=== PATIENT | female | born 1995 | race Caucasian/White ===

== ENCOUNTER 2016-07-23 09:37 | Emergency (ER) | payer OTHER ==
[~2016-07-23] VITALS: Ht 154.9 cm; Wt 77.0 kg
[~2016-07-23 09:37] MED LIST: DENIES MEDS
[2016-07-23 09:40] VITALS: Ht 154.9 cm; Wt 77.0 kg
--- NOTE | 2016-07-23 10:57 | ERD ---
ER Documentation Chief Complaint Date/Time DATE: 07/23/16 TIME: 10:55 Chief Complaint lt knee pain s/p fall at work yesterday HPI Is a 21-year-old female who presents the emergency department today complaining of left knee pain after sustaining a fall yesterday at work. Patient states she works at [employer]. States she is unsure how she fell. States that she did notify her employer. States she has not taken the medication for the pain but has pain with ambulation. Denies any previous trauma, fevers or chills. ROS All systems reviewed and are negative except as per history of present illness. Medications Home Meds Active Scripts Acetaminophen* (Tylophen*) 500 Mg Capsule, 1 CAP PO Q6H Y for PAIN AND OR ELEVATED TEMP, #30 CAP Prov:JESSE ROSARIO PA-C 07/23/16 Naproxen* (Naprosyn*) 500 Mg Tablet, 500 MG PO BID Y for PAIN AND/OR INFLAMMATION, #30 TAB Prov:JESSE ROSARIO PA-C 07/23/16 Reported Medications [Denies Meds] No Conflict Check 07/31/10 Allergies Allergies: Coded Allergies: Brompheniramine (Verified Allergy, Mild, 07/31/10) Phenylpropanolamine (Verified Allergy, Mild, 07/31/10) PMhx/Soc History of Surgery: No Anesthesia Reaction: No Hx Neurological Disorder: No Hx Respiratory Disorders: No Hx Cardiac Disorders: No Hx Psychiatric Problems: No Hx Miscellaneous Medical Probl: No Hx Alcohol Use: No Hx Substance Use: No Hx Tobacco Use: No Physical Exam Vitals Vital Signs Date Time Temp Pulse Resp B/P Pulse Ox O2 Delivery O2 Flow Rate FiO2 07/23/16 09:40 98.1 85 18 126/70 98 Physical Exam Const: No acute distress Head: Atraumatic Eyes: Normal Conjunctiva ENT: Normal External Ears, Nose and Mouth. Neck: Full range of motion..~ No meningismus. Resp: Clear to auscultation bilaterally Cardio: Regular rate and rhythm, no murmurs Skin: No petechiae or rashes. No abrasions. MSK: Left knee with no obvious deformity. No effusion. No ecchymosis. Full active range of motion. Tenderness palpation lateral border PET patella and tibial tubercle. Nontender tibia fibula full active range of motion. Patient ambulates with a limp. Pulses 2+. Distal neurovascularly intact. Neur: Awake and alert Psych: Normal Mood and Affect Results 24 hrs DIAGNOSTIC IMAGING REPORT Patient: NAMAN CUMMINGS : 1995 Age: 21 Sex: F MR #: [id number] DOS: 07/23/16 0000 Ordering MD: JESSE ROSARIO PA-C Location: [facility] Room/Bed: PROCEDURE: XR Knee. CLINICAL INDICATION: Pain. TECHNIQUE: AP, lateral and oblique views of the left knee were obtained. The images reviewed on a PACS workstation. COMPARISON: None. FINDINGS: The bones appear intact, with no evidence of fracture, erosion, demineralization , or dislocation. The alignment of the femorotibial and patellofemoral joints appears normal. No joint space narrowing is seen. A Small knee effusion and soft tissue swelling are present. IMPRESSION: No acute fracture or dislocation. Small knee effusion and soft tissue swelling. RPTAT: QQ .Jenn Gale MD MD Date Time Electronically viewed and signed by .Jenn Gale MD, MD on 07/23/2016 12:10 .F/ CC: JESSE ROSARIO PA-C Procedures/MDM There is a 21-year-old female who presents the emergency department today complaining of left knee pain after falling at work yesterday. Given the patient's trauma and pain with ambulation and patient walking with a limp, I did obtain images. Per the radiology report images of the left knee show no acute fracture dislocation. There is small knee effusion and soft tissue swelling. Patient symptoms at this time was consistent with sprain versus strain versus contusion. Low suspicion for septic joint or gout. Patient is afebrile and otherwise well-appearing. Low suspicion for acute fracture dislocation. Patient declined pain medication here in the emergency department. She will be given a prescription for Tylenol, Naprosyn. She also declined crutches or a knee immobilizer. At this time the patient is stable for discharge and outpatient management. Patient should follow up with their PCP in the next 1-2 days. They may return to the emergency department sooner for any persistent or worsening of symptoms. Patient understood and agreed with the plan. Departure Diagnosis: Primary Impression: Fall Encounter type: initial encounter Qualified Code: W19.XXXA - Fall, initial encounter Additional Impression: Knee injury Encounter type: initial encounter Laterality: left Qualified Code: S89.92XA - Knee injury, left, initial encounter Condition: JESSE Dow PA-C Jul 23, 2016 10:57
--- NOTE | 2016-07-23 12:10 | RADRPT ---
PROCEDURE: XR Knee. CLINICAL INDICATION: Pain. TECHNIQUE: AP, lateral and oblique views of the left knee were obtained. The images reviewed on a PACS workstation. COMPARISON: None. FINDINGS: The bones appear intact, with no evidence of fracture, erosion, demineralization, or dislocation. Th e alignment of the femorotibial and patellofemoral joints appears normal. No joint space narrowing i s seen. A Small knee effusion and soft tissue swelling are present. IMPRESSION: No acute fracture or dislocation. Small knee effusion and soft tissue swelling. RPTAT: QQ .Jenn Gale MD, MD Date Time Electronically viewed and signed by .Jenn Gale MD, MD on 07/23/2016 12:10 .F/
[2016-07-23] MEDS ORDERED: ACET500C5 PO (12:17)
[2016-07-23] MEDS ORDERED: NAPR-260 PO (12:17)
== END 2016-07-23 12:35 | disposition home or self-care (01) ==
LOC: FTE 09:37
DX: S89.92XA Unspecified injury of left lower leg, initial encounter (principal); W19.XXXA Unspecified fall, initial encounter; Y92.89 Other specified places as the place of occurrence of the external cause
CPT/HCPCS: 73562; Z7502

== ENCOUNTER 2016-12-02 11:45 | Emergency (ER) | payer OTHER ==
[~2016-12-02] VITALS: Ht 154.9 cm; Wt 74.0 kg
[~2016-12-02 11:45] MED LIST changes: +ACET500C5 PO; +NAPR-260 PO
[2016-12-02 11:52] VITALS: Ht 154.9 cm; Wt 74.0 kg
[2016-12-02 14:10] VITALS: BP 110/60; PULSE 78; RESP 18; TEMP 98.3
[2016-12-02] MEDS ORDERED: IBUP-1542 PO (14:19)
--- NOTE | 2016-12-02 15:18 | ERD ---
ER Documentation Chief Complaint Date/Time DATE: 12/02/16 TIME: 15:08 Chief Complaint pt bib family with c/o left sided breast lump with pain, noticed it yesterd HPI Patient is a 21-year-old female who presents to the emergency department concerns of left breast lump which started yesterday. Patient states the lump is tender to palpation. Patient denies any nipple discharge or bleeding. Patient denies any trauma or falls. Patient denies any fevers, chills, nausea, vomiting, chest pain, shortness breath or LOC. Patient states that she has an IUD and has irregular periods. Last menstrual period approximately 2 months ago. Patient denies family history of breast cancer. ROS All systems reviewed and are negative except as per history of present illness. Medications Home Meds Active Scripts Ibuprofen* (Motrin*) 600 Mg Tab, 600 MG PO Q6, #30 TAB Prov:ARLENE FLANAGAN PA-C 12/02/16 Acetaminophen* (Tylophen*) 500 Mg Capsule, 1 CAP PO Q6H Y for PAIN AND OR ELEVATED TEMP, #30 CAP Prov:JESSE ROSARIO PA-C 07/23/16 Naproxen* (Naprosyn*) 500 Mg Tablet, 500 MG PO BID Y for PAIN AND/OR INFLAMMATION, #30 TAB Prov:JESSE ROSARIO PA-C 07/23/16 Reported Medications [Denies Meds] No Conflict Check 07/31/10 Allergies Allergies: Coded Allergies: brompheniramine (Verified Allergy, Mild, 12/02/16) phenylpropanolamine (Verified Allergy, Mild, 12/02/16) PMhx/Soc Medical and Surgical Hx: pt denies Medical Hx, pt denies Surgical Hx History of Surgery: No Anesthesia Reaction: No Hx Neurological Disorder: No Hx Respiratory Disorders: No Hx Cardiac Disorders: No Hx Psychiatric Problems: No Hx Miscellaneous Medical Probl: No Hx Alcohol Use: No Hx Substance Use: No Hx Tobacco Use: No Smoking Status: Never smoker Physical Exam Vitals Vital Signs Date Time Temp Pulse Resp B/P Pulse Ox O2 Delivery O2 Flow Rate FiO2 12/02/16 14:10 98.3 78 18 110/60 98 Room Air 12/02/16 11:52 98.9 98 18 119/65 98 Physical Exam GENERAL: Well-developed, well-nourished female. Appears in no acute distress. Speaking in full sentences. HEAD: Normocephalic, atraumatic. EYES: Pupils are equally reactive bilaterally. EOMs grossly intact. No conjunctival erythema. ENT: Moist mucous membranes. No uvula deviation. No kissing tonsils. NECK: Supple. No meningismus. Normal range of motion of the neck. LUNG: Clear to auscultation bilaterally. No rhonchi, wheezing, rales or coarse breath sounds. HEART: Regular rate and rhythm. No murmurs, rubs or gallops. BREAST: Palpable, < 1 cm, round, soft lump noted in 12 oclock position of L breast. Area is tender to palpation. No warmth, erythema, swelling. No nipple discharge or bleeding. BACK: No midline tenderness. EXTREMITIES: Equal pulses bilaterally. No peripheral clubbing, cyanosis or edema. No unilateral leg swelling. NEUROLOGIC: Alert and oriented. Moving all four extremities without any difficulty. Normal speech. Steady gait. SKIN: Normal color. Warm and dry. No rashes or lesions. Procedures/MDM MEDICAL DECISION MAKING: Patient is a 21-year-old female presents emergency department for concerns of left-sided breast pain and lump which she noticed yesterday. Patient does have a history of irregular periods and currently has an IUD. Denied any family history of breast cancer. Vital signs were reviewed. Patient is afebrile. Patient was not hypoxic. Urine test was negative. Given history of irregular periods, it is possible that patient breast pain is related to fibrocystic changes. Low suspicion for malignancy however unable to rule out this time. I discussed the patient's findings with the patient and her mother. Advised patient and mother to monitor patient's symptoms closely. Advised patient and her mother to follow-up with her primary care physician Dr. Hernandez for referral for a mammogram on an outpatient basis. Mother and patient agreeable with plan. Low suspicion for , mastitis, cellulitis, abscess , deep space infections, ACS. PRESCRIPTION: Ibuprofen DISCHARGE: At this time, patient is stable for discharge and outpatient management. I have instructed the patient to follow-up with his/her primary care physician in 1-2 days. I have discussed with the patient the possibility of needing to see a specialist for further workup and imaging studies if symptoms persist. I have instructed the patient to promptly return to the ER for any new or worsening symptoms including increased pain, fever, nausea, vomiting, weakness or LOC. The patient and/or family expressed understanding of and agreement with this plan. All questions were answered. Home care instructions were provided. Departure Diagnosis: Primary Impression: Breast pain Condition: Stable Patient Instructions: Breast Mass, Uncertain Cause, Fibrocystic Breast Disease , Presumed Referrals: BUD HERNANDEZ MD (PCP) Additional Instructions: Unable to rule out malignancy. Follow up with your primary doctor for mammogram on outpatient basis. Call your primary care doctor TOMORROW for an appointment during the next 1-2 days.See the doctor sooner or return here if your condition worsens before your appointment time. ARLENE FLNAAGAN PA-C Dec 02, 2016 15:18
== END 2016-12-02 14:25 | disposition home or self-care (01) ==
LOC: FTE 11:45
DX: N64.4 Mastodynia (principal)
CPT/HCPCS: 99283

== ENCOUNTER 2018-02-27 14:30 | Emergency (ER) | END 2018-02-27 19:34 | disposition home or self-care (01) ==